=== PATIENT | male | born 1970 | race Caucasian/White ===

== ENCOUNTER 2023-10-01 08:05 | Emergency (ER) | payer SELFPAY ==
[2023-10-01] VITALS (13 sets, daily range): BP systolic 110–131; BP diastolic 84–92; PULSE 67–112; RESP 11–20; TEMP 36.6; O2SAT 95–98; BMI 33.1
--- NOTE | 2023-10-01 08:32 | ECG_ITS ---
[facility] Date: 2023-10-01 Pat Name: CECELIA KRAMER Department: Room: - Gender: Male [place]: : 1970 Requested By: LEROY GILL Order Number: [id number] Reading MD: VICKEY REDDY Measurements Intervals [place] Rate: 105 P: -[id number] SD: -60684 QRS: 50 QRSD: 82 T: 28 QT: 330 QTc: 391 Interpretive Statements 33194 Atrial fibrillation with rapid ventricular response 9140 abnormal rhythm ECG No previous ECG available for comparison Electronically Signed On 10-02-2023 6:36:23 EDT by VICKEY REDDY
--- NOTE | 2023-10-01 08:32 | XR_ITS ---
[facility] [id number] Patient Name: CECELIA KRAMER MRN: [id number] date: 1970 Sex: M Assigned Patient Location: ER Current Patient Location: ER Accession/Order Number: [id number] Exam Date: 10/01/2023 08:45 Report Date: 10/01/2023 09:06 At the request of: CATHY TONY Procedure: XR chest 1V EXAM: XR chest 1V HISTORY: Palpitations COMPARISON: None TECHNIQUE: AP view of the chest was obtained with portable technique at 0849 hours. FINDINGS: Heart and mediastinal contours are unremarkable in appearance. No acute infiltrate or consolidations are seen. No obvious pneumothorax. Slight convexity of the dorsal spine to the right. Small calcification along the lateral aspect of the right humeral head, consider calcific tendinitis. XR/XR chest 1V IMPRESSION: No acute process seen in the chest. Electronically authenticated by: NEIL HAWKINS Date: 10/01/2023 09:06
--- NOTE | 2023-10-01 08:33 | ED.ARRPALP1 ---
HPI - Arrhythmia/Palpitations General Chief Complaint: Arrhythmia/Palpitations Stated Complaint: AFIB/IRREGULAR HEARTBEAT Time Seen by Provider: 10/01/23 08:23 History of Present Illness HPI narrative: 53-year-old male presents to the emergency department for palpitations. He first noticed it today. He has no history of palpitations or atrial fibrillation. He does not complain of dizziness or shortness of breath. Last week he had a tooth extracted and is on prednisone. He does not take any other medications. There is a family history of CAD and atrial fibrillation. Related Data Previous Rx's Medication Instructions Recorded apixaban 5 mg tablet (Eliquis) 5 mg PO Q12H #60 tabs 10/01/23 Allergies Allergy/AdvReac Type Severity Reaction Status Date / Time No Known Drug Allergies Allergy Verified 10/01/23 08:15 Review of Systems ROS Narrative A ten point review of systems is negative except as noted above. PFSH PFSH Social History Smoking status: Former smoker Exam Narrative Exam Narrative: Nurses note and vital signs reviewed and patient is not hypoxic. General: The patient appears well and in no apparent distress. Patient is resting comfortably on cart. Skin: Warm, dry, no pallor noted. There is no rash noted. Head: Normocephalic, atraumatic Eye: Normal conjunctiva, no drainage Ears, Nose, Mouth, and Throat: oral mucosa is moist. Nares patent. Cardiovascular: Irregularly irregular and borderline tachycardic Respiratory: Patient is in no distress, no accessory muscle use, lungs are clear to auscultation, no wheezing, rales or rhonchi Back: non-tender GI: Soft and nontender Musculoskeletal: The patient has no evidence of calf tenderness, no pitting edema, symmetrical pulses noted bilaterally Neurological: A&O, normal speech Psychiatric: Cooperative Constitutional Vital Signs, click to edit/add: Last Vital Signs Temp 97.9 F 10/01/23 08:10 Pulse 86 10/01/23 09:40 Resp 17 10/01/23 09:40 BP 129/92 H 10/01/23 09:31 Pulse Ox 95 10/01/23 09:40 O2 Del Method Room Air 10/01/23 08:10 Course Vital Signs Vital signs: Vital Signs Temperature 97.9 F 10/01/23 08:10 Pulse Rate 67 10/01/23 08:10 Respiratory Rate 18 10/01/23 08:10 Blood Pressure 110/84 10/01/23 08:10 Pulse Oximetry 97 10/01/23 08:10 Oxygen Delivery Method Room Air 10/01/23 08:10 Temperature 97.9 F 10/01/23 08:10 Pulse Rate 86 10/01/23 09:40 Respiratory Rate 17 10/01/23 09:40 Blood Pressure 129/92 H 10/01/23 09:31 Pulse Oximetry 95 10/01/23 09:40 Oxygen Delivery Method Room Air 10/01/23 08:10 MDM - Arrhythmia/Palpitations MDM Narrative Medical decision making narrative: The patient presented with new onset atrial fibrillation with well-controlled rate. Workup is negative. Second troponin was less than the first and TSH is normal. Case discussed with Dr. Packer and follow-up is arranged. He was prescribed Eliquis. Treatment diagnosis and follow-up were discussed with the patient and his Differential Diagnosis Differential diagnosis: Likely palpitations, artial fibrillation, supraventricular tachycardia and other (PVCs) Lab Data Attestation: I reviewed the patient's lab results. Labs: Lab Results 10/01/23 10/01/23 Range/Units 08:23 09:36 WBC 9.9 (4.0-11.0) 10^3/uL RBC 5.48 (4.70-6.10) 10^6/uL Hgb 15.8 (14.0-18.0) g/dL Hct 48.2 (42.0-54.0) % MCV 88.0 (80.0-94.0) fL MCH 28.8 (25.9-34.0) pg MCHC 32.8 (29.9-35.2) g/dL RDW 13.4 (11.0-15.0) % Plt Count 301 (150-450) 10^3/uL MPV 10.3 (9.5-13.5) fL Neut % (Auto) 72.4 (43.0-75.0) % Lymph % (Auto) 19.2 L (20.5-60.0) % [place] % (Auto) 7.9 (1.7-12.0) % Eos % (Auto) 0.0 L (0.9-7.0) % Baso % (Auto) 0.3 (0.2-2.0) % Neut # (Auto) 7.2 H (1.4-6.5) 10^3/uL Lymph # (Auto) 1.9 (1.2-3.8) 10^3/uL [place] # (Auto) 0.8 (0.3-0.8) 10^3/uL Eos # (Auto) 0.0 (0.0-0.7) 10^3/uL Baso # (Auto) 0.0 (0.0-0.1) 10^3/uL Abs Immat Gran (auto) 0.02 (0.00-0.03) 10^3/uL Imm/Tot Granulo (auto) 0.2 (0.0-0.5) % PT 10.3 (9.0-11.6) sec INR 0.97 APTT 29.9 (22.3-36.2) sec Sodium 143 (136-145) mmol/L Potassium 3.7 (3.5-5.1) mmol/L Chloride 104 (98-107) mmol/L Carbon Dioxide 28.9 (21.0-32.0) mmol/L Anion Gap 13.8 BUN 20.0 H (7.0-18.0) mg/dL Creatinine 1.04 (0.70-1.30) mg/dL Est GFR ( Amer) >60 (>=60) Est GFR (Non-Af Amer) >60 (>=60) BUN/Creatinine Ratio 19.2 Glucose 86 (74-106) mg/dL Calcium 8.9 (8.5-10.1) mg/dL Troponin I High Sens 134.3 H* 115.8 H* (4.0-76.1) pg/mL TSH & Free T4 Interp 1.382 (0.358-3.740) uIU/mL Imaging Data Chest x-ray: Radiologist's impression: ITS Impressions Chest X-Ray 10/01/23 08:32 IMPRESSION: No acute process seen in the chest. Electronically authenticated by: NEIL HAWKINS Date: 10/01/2023 09:06 ECG Data Attestation: I personally reviewed and interpreted this ECG as follows: (EKG on my interpretation shows atrial fibrillation with a rate of 105.) Discharge Plan Discharge Stand Alone Forms: Portal Instructions Chief Complaint: Arrhythmia/Palpitations Clinical Impression: Atrial fibrillation, new onset Patient Disposition: Home, Self-Care Time of Disposition Decision: 10:37 Condition: Good Mode of Transportation: Private Vehicle Prescriptions / Home Meds: New Eliquis 5 mg tablet 5 mg PO Q12H Qty: 60 0RF Instructions: A-fib (Atrial Fibrillation) (ED), Blood Thinners (ED), Cardiac Ablation (DC) Referrals: Noemy Pal MD [Physician] - 1 week Dani Canas MD [Primary Care Provider] - 1 week
[2023-10-01 09:04] LABS: Basophils Percent Auto 0.3 % (0.2-2.0); Hematocrit 48.2 % (42.0-54.0); Hemoglobin 15.8 g/dL (14.0-18.0); Immature Granulocytes Abs Auto 0.02 10^3/uL (0.00-0.03); Immature Granulocytes Pct Auto 0.2 % (0.0-0.5); Lymphocytes Absolute Auto 1.9 10^3/uL (1.2-3.8); Lymphocytes Percent Auto 19.2 % (20.5-60.0); Mean Corpuscular HGB Conc 32.8 g/dL (29.9-35.2); Mean Corpuscular Hemoglobin 28.8 pg (25.9-34.0); Mean Platelet Volume 10.3 fL (9.5-13.5); Monocytes Absolute Auto 0.8 10^3/uL (0.3-0.8); Monocytes Percent Auto 7.9 % (1.7-12.0); Neutrophils Absolute Auto 7.2 10^3/uL (1.4-6.5); Neutrophils Percent Auto 72.4 % (43.0-75.0); Platelet Count 301 10^3/uL (150-450); Red Blood Count 5.48 10^6/uL (4.70-6.10); Red Cell Distribution Width 13.4 % (11.0-15.0); White Blood Count 9.9 10^3/uL (4.0-11.0)
[2023-10-01 09:12] LABS: INR 0.97; Partial Thromboplastin Time 29.9 sec (22.3-36.2); Prothrombin Time 10.3 sec (9.0-11.6)
[2023-10-01 09:14] LABS: Anion Gap 13.8; BUN Creatinine Ratio 19.2; Calcium 8.9 mg/dL (8.5-10.1); Carbon Dioxide 28.9 mmol/L (21.0-32.0); Chloride 104 mmol/L (98-107); Estimated GFR (African America >60 (>=60); Estimated GFR (Non-African Ame >60 (>=60); Glucose 86 mg/dL (74-106); Potassium 3.7 mmol/L (3.5-5.1); Sodium 143 mmol/L (136-145); TSH W/ REFLEX FT4 1.382 uIU/mL (0.358-3.740)
[2023-10-01 09:15] LABS: Troponin I High Sensitivity 134.3 pg/mL (4.0-76.1)
[2023-10-01 10:02] LABS: Troponin I High Sensitivity 115.8 pg/mL (4.0-76.1)
== END 2023-10-01 10:48 | disposition home or self-care (01) ==
PROVIDERS: Emergency Provider Emergency Medicine; PCP Family Medicine
DX: I48.91 Unspecified atrial fibrillation (principal); Z87.891 Personal history of nicotine dependence
CPT/HCPCS: 36415; 71045; 80048; 84443; 84484; 85025; 85610; 85730; 93005; 99285

== ENCOUNTER 2023-10-15 13:00 | Outpatient (OUT) | payer SELFPAY ==
--- OUTSIDE RECORDS SUMMARY | 2023-10-16 07:53 | XMS_ITS | CCD ---
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 Name Role Phone LEROY GILL Admitting Unavailable NADSALVADORRLEROY Attending Unavailable LEROY GILL Consulting Unavailable ASHLIERLEROY Admitting Unavailable NADSALVADORRLEROY Attending Unavailable JAIRO, LEROY Hanson Primary Care Unavailable ASHLIERLEROY Consulting Unavailable RAÚL FAITH Attending Unavailable Problems Problem Classification Problem Date Documented Da te Episodic/Chronic Cardiac dysrhythmias (2 sources) Paroxysmal atrial fibrillation; Translations: [Paroxysmal atrial fibrillation] Onset: 10-02-2023 Chronic Immunizations and screening for infectious disease (8 sources) Contact with and (suspected) exposure to other viral communicable diseases; Translations: [Encounter for screening for other viral diseases] Onset: 03-15-2020 Episodic Results Test Name Value Interpretation Reference Range Facil ity Office Visiton 10-02-2023 Follow-up visit [id number] Cecelia Fierro 1970 M Jimenez Provider Department Center 10/02/2023 [facility] Family History Problem Relation Age of Onset Coronary artery disease Mother Other Mother Coronary artery disease Father Other Father Atrial fibrillation Father Dilated cardiomyopathy Other 23 Family Status - Relation Status Age at Mother Father Other Level of Service:79303 AR OFFICE/OUTPATIENT NEW MODERATE MDM 45 MINUTES Normal [facility] Ambulatory Clinical Summaryo n 07-26-2020 Ambulatory Clinical Summary {[id number] Normal [facility] Patient Educationon 07-26-19 Patient Education Family Medicine Vasectomy A vasectomy is tying (with or without cutting) the tube that collects the sperm from the testicle (vas deferens ). The vasectomy blocks the sperm from going through the vas deferens and penis so that during sexual intercourse, the sperm does not go into the vagina. Vasectomy is safe, with very rare complications. It does not affect your sexual desire or performance. Since vasectomy is considered permanent, you should not have it done until you are sure you do not want any more children. You and your partner should be in full agreement to have the procedure. Your decision to have a vasectomy should not be made during a stressful situation. This includes loss of a , illness, of a spouse or divorce. There are other means of contraception that can be used until you are completely sure you want this procedure done. A vasectomy does not protect you from sexually transmitted disease. Men who want the vasectomy reversed need an operation. It may not be successful. A vasectomy has less risk and is less expensive than a woman having a tubal sterilization. LET YOUR CAREGIVER KNOW ABOUT: ? Allergies. ? Medications taken including herbs, eye drops, over the counter medications, and creams. ? Use of steroids (by mouth or creams). ? Past problems with anesthetics or Novocaine. ? History of blood clots (thrombophlebitis ). ? History of bleeding or blood problems. ? Past surgery. RISKS AND COMPLICATIONS ? Failure of the procedure to cause infertility. This means you would still be able to get a female . ? Post-operative pain. This can usually be controlled with medicine. ? Infection. A germ starts growing in the wound. This can usually be treated with antibiotics. ? An allergic reaction to the anesthetic or other medicine given. ? Bleeding. Blood may seep under the skin so that the scrotum and penis appear to be bruised. Sometimes the scrotum can swell and get the size of a grapefruit. This usually disappears without treatment within a week or two. PROCEDURE ? The scrotum is cleaned with bacterial killing soap and the caregiver finds the vas deferens. ? Each side of the scrotum is numbed. ? A very small cut (incision ) is made, and the vas deferens are pulled out of the scrotum. The vas deferens are then tied off, cut or may be burned (cauterized ) at the ends. ? Sometimes the vas deferens are pulled out from the scrotum through a puncture wound. This is done with a special instrument without an incision. ? The vas deferens are then put back into the scrotum, and the incision or puncture wound is closed. ? After surgery, sperm may still be left in the vas deferens for 1 to 3 months. Because of this, other means of contraception should be used until your caregiver examines you and finds there are no sperm in your seminal fluid. ? Castration is another method that is the surgical removal of both testicles. It causes sterilization in men. Having a vasectomy should be discussed with your infant childcare provider with you and your partner present. Ask questions and talk about your concerns with your caregiver. Then, you can decide if the operation is safe for you. You can change your mind and cancel the surgery at any time. HOME CARE INSTRUCTIONS ? Only take uyti-pzg-[id number] or prescription medicines for pain, discomfort or fever as directed by your caregiver. ? An ice pack for 15-20 minutes, 3-4 times per day will help decrease swelling. ? Wearing supportive briefs or an athletic supporter will help decrease swelling. ? Avoid being active for the first two days after surgery. ? Keep the incisions clean and covered to prevent infection. ? Some oozing of blood from the cut (incision ) is normal during the first day or two after surgery. ? Do not participate in sports or do heavy physical labor for at least two weeks. ? Follow your caregivers instructions regarding diet, rest, work, social and sexual activities and follow up appointments. SEEK IMMEDIATE MEDICAL CARE IF: ? There is redness, swelling, or increasing pain in the wounds or testicles. ? Pus is coming from wound. ? An unexplained oral temperature above 102? F (38.9? C) develops, or as directed by your caregiver. ? You notice a bad smell coming from the wound or material covering the wound (dressing ). ? There is a breaking open of the stitches (suture ) or wound edges even after sutures have been removed. Sometimes these incisions are not sutured. ? There is increased bleeding from the wounds. MAKE SURE YOU: ? Understand these instructions. ? Will watch your condition. ? Will get help right away if you are not doing well or get worse. Document Released: 09/29/2003 Document Revised: 09/30/2012 Document Reviewed: 11/24/2008 ExitCare? Patient Information ?2013 [employer]. [facility] Urology Office/Clinic Noteon 07-26-2020 Urology Office/Clinic Note Chief Complaint Pt is new and here for vasectomy consult HPI Staff Pt is new and here for vasectomy consult. Pain with urination:Pt denies pain and burning Blood in urine:Pt denies but UA shows Trace intact Incomplete bladder emptying:Pt denies Frequency:Pt denies Urgency:Pt denies Nocturia:Pt states 1 time Hesitancy:Pt denies Urination requires straining:Pt denies Post-void dribbling:Pt denies Leaking before getting to the restroom:Pt denies Urinary incontinence without sensory awareness:Pt denies Temporarily unable to restrain urination with body movement:Pt denies Wearing pad/Depends Pt denies Urine odor:Pt denies Flank/Back pain:Pt denies Abdominal pain:Pt denies History of Present Illness Reviewed urine and new patient paperwork today. There have been no associated fever, chills, flank pain or blood in the urine. Pt. denies any pain/burning with urination at this time. Review of Systems ROS - Provider Constitutional: denies weight loss, denies hot flashes. Eyes: denies eye problems. Gastrointestinal: denies nausea, denies vomiting. Cardiovascular: denies chest pain or angina. Integumentary: no dryness Musculoskeletal: denies musculoskeletal symptoms. ENMT: denies otolaryngeal symptoms. Respiratory: no shortness of breath. Heme/Lymph: denies easy bleeding tendency, denies easy bruising tendency. Psychiatric: no confusion, no anxiety. Genitourinary: denies dysuria, denies hematuria, denies discharge, denies urinary frequency, denies urinary hesitancy, denies nocturia, denies incontinence, denies genital sores, denies decreased libido, and denies erectile dysfunction. Physical Exam Vitals & Measurements HR: 60(Peripheral) RR: 16 BP: 152/92 HT: 175 cm HT: 175.0 cm WT: 118.1 kg WT: 118.1 kg BMI: 38.56 General Appearance: alert, no distress, well nourished, well developed male. Head: normocephalic . Eyes: normal orbit and globe. ENMT: normal examination of external ears. Chest: Lungs CTA, respirations non labored. Cardiovascular: regular rate and rhythm. Abdomen: soft, non distended, no tenderness, no mass or organomegaly, no hernia. Genitourinary: normal scrotum, normal testes, normal urethra, normal epididymis, normal vas deferens/spermatic cord. Flank Pain: none. Bladder: nonpalpable. Penis: normal shaft, normal glans. Prostate: normal prostate, estimated weight 30 gms, no hard nodule observed. Lymph Nodes: unremarkable palpation of the cervical area. Skin: warm, dry, no bruising. Psychiatric: cooperative, affect appropriate for age, normal judgement, euthymic mood. Assessment/Plan 1. 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 Pt. is to get a PSA level soon as he has never had one. [place] today - 30gms, no hard nodules. Will schedule Vasectomy. The procedural risks, benefits, details, and treatment alternatives of sterilization have been discussed with the patient today. He understands this procedure is considered permanent, even though vasectomy reversals can be performed. There is no guarantee of successful reversal resulting in , however. Risks discussed include bleeding, infection, failure with in about 1:2500, post-vasectomy syndrome (chronic pain in the testicle or scrotum), possible association with prostate cancer development in the future, and erection problems, among others. Despite these risks, he wishes to proceed. He also understands that he is not considered sterile until a negative semen sample has been received after about 2-3 months after the vasectomy. Full informed consent has been obtained. Will order Local anesthesia. I have reviewed the previous health record information and history for this pt. from Dr. Freeman. Follow-up With When Contact Information PETE FUENTES, Anurag Zazueta [address] [place] [phone] Additional Instructions: f/u prn Patient Education Vasectomy I, Shirley Baum , personally scribed for Dr. Freeman on 07/26/2020 12:23:55. . Documentation recorded by the scribe, Shirley Baum, accurately reflects the services(s) I performed and decisions made by me. Authenticated by Dr. Freeman on 07/26/2020 12:25:29. Problem List/Past Medical History Ongoing Vasectomy evaluation Historical No qualifying data Medications Multi Vitamins oral tablet, Oral, Daily Allergies No Known Medication Allergies Social History Tobacco Never (less than 100 in lifetime) Tobacco Use:. Never Smokeless Tobacco Use:., 07/26/2020 Family History Congenital heart disease: Mother and Father. Hyperlipidemia: Mother and Father. Stroke: Grandparent. Lab Results Ambulatory Point of Care Results Bilirubin Urine Dipstick: Negative (07/26/20 11:21:00) Blood Urine Dipstick: Trace-intact (07/26/20 11:21:00) Glucose Urine Dipstick: Negative (07/26/20 11:21:00) Ketones Urine Dipstick: Negative (07/26/20 11:21:00) Leukocytes Urine Dipstick: Negative (07/26/20 11:21:00) Nitrite Urine Dipstick: Negative (07/26/20 11:21:00) Protein Urine Dipstick: Negative (07/26/20 11:21:00) Specific [place] Urine Dipstick: 1.015 (07/26/20 11:21:00) Urine Appearance Urine Dipstick: Clear (07/26/20 11:21:00) Urine Color Urine Dipstick: Light yellow (07/26/20 11:21:00) Urobilinogen Urine Dipstick: Normal 0.2-1 EU/dl (07/26/20 11:21:00) pH Urine Dipstick: 7 (07/26/20 11:21:00) Normal [facility] Comment on above: Result Comment: Elec tronically Signed By: Anurag FREEMAN MD\.br\Date and Time Signed: 07/26/20 12:25 EST\.br\Electronically Co-Signed By: Shirley Baum MA\.br\Date and Time Co-Signed: 07/26/20 12:24 EST COVID-19 PCRon 04-02-2020 SARS-CoV-2, SLOAN Not Detected Normal Not Detected [facility] Comment on above: Result Comment: This nucleic acid amplification test was developed and its performance characteristics determined by [employer]. Nucleic acid amplification tests include PCR and TMA. This test has not been FDA cleared or approved. This test has been authorized by FDA under an Emergency Use Authorization (EUA). This test is only authorized for the duration of time the declaration that circumstances exist justifying the authorization of the emergency use of in vitro diagnostic tests for detection of SARS-CoV-2 virus and/or diagnosis of COVID-19 infection under section 564(b)(1) of the Act, 21 U.S.C. 360bbb-3(b) (1), unless the authorization is terminated or revoked sooner. When diagnostic testing is negative, the possibility of a false negative result should be considered in the context of a patient's recent exposures and the presence of clinical signs and symptoms consistent with COVID-19. An individual without symptoms of COVID-19 and who is not shedding SARS-CoV-2 virus would expect to have a negative (not detected) result in this assay. Performed By: #### C VDPCR #### [facility] [address] [place] [address] Ginateo Malcolm COVID-19 PCRon 03-16-2020 SARS-CoV-2, SLOAN Not Detected Normal Not Detected [facility] Comment on above: Result Comment: This test was developed and its performance characteristics determined by [employer]. This test has not been FDA cleared or approved. This test has been authorized by FDA under an Emergency Use Authorization (EUA). This test is only authorized for the duration of time the declaration that circumstances exist justifying the authorization of the emergency use of in vitro diagnostic tests for detection of SARS-CoV-2 virus and/or diagnosis of COVID-19 infection under section 564(b)(1) of the Act, 21 U.S.C. 360bbb-3(b)(1), unless the authorization is terminated or revoked sooner. When diagnostic testing is negative, the possibility of a false negative result should be considered in the context of a patient's recent exposures and the presence of clinical signs and symptoms consistent with COVID-19. An individual without symptoms of COVID-19 and who is not shedding SARS-CoV-2 virus would expect to have a negative (not detected) result in this assay. Performed By: #### C VDPCR #### [facility] [address] [place] [address] Gina Malcolm Encounters Encounter Date Encounter Type Care Provider Facility Start: 10-02-2023 End: 10-02-2023 [facility] Start: 04-01-2020 End: 04-02-2020 Patient encounter procedure LEROY GILL Facility:[facility] Start: 03-15-2020 End: 03-16-2020 Patient encounter procedure LEROY GILL Facility:[facility] Payers Date Payer Category Payer Unknown [id number] 1970 Unknown [id number] 1970 Unknown [id number] Progress note 10-02-2023 Note Date & Type Note Facility 10-02-2023 Note [facility] Consult Note Reason for visit: Afib HPI: Cecelia Fierro is a 53 y.o. year old with no significant cardiac history in the past was recently admitted to [facility] emergency room yesterday with atrial fibrillation he did not have any associated dizziness or shortness of breath but had recently undergone a tooth extraction and has been on prednisone following this he noted yesterday that his heart was racing fast and presented to ED. there he was started on apixaban. Cardiac workup was significant for troponin being positive and his A-fib was well-controlled. He was subsequently discharged for follow-up visit today in the clinic Denies chest pain, SOB, lightheadedness/syncope, and bleeding on Eliquis. Has a nephew that suddenly from idiopathic dilated cardiomyopathy at the age of 23. He is in clinic and noiw in SR EK10/02/23 SR. PMH: Past Medical History: Diagnosis Date Abnormal ECG Arrhythmia Atrial fibrillation (CMS/HCC) PSH: Past Surgical History: Procedure Laterality Date MULTIPLE TOOTH EXTRACTIONS SH: Social Determinants of Health Tobacco Use: Low Risk (10/02/2023) Patient History Smoking Tobacco Use: Never Smokeless Tobacco Use: Never Passive Exposure: Not on file Alcohol Use: Not on file Financial Resource Strain: Not on file Food Insecurity: Not on file Transportation Needs: Not on file Physical Activity: Not on file Stress: Not on file Social Connections: Not on file Intimate Partner Violence: Unknown (10/01/2023) [facility] Fear of Current or Ex-Partner: Not on file Emotionally Abused: Not on file Physically Abused: Not on file Sexually Abused: Not on file Physically or Sexually Abused: Not on file Depression: Not on file Housing Stability: Not on file Utilities: Not on file Allergies: No Known Allergies Weight: 103kg Visit Vitals BP 131/87 (BP Location: Right arm, Patient Position: Sitting) Pulse 87 Ht 1.753 m (5' 9 ) Wt 103 kg (228 lb) SpO2 96% BMI 33.67 kg/m??? Smoking Status Never BSA 2.24 m??? Meds: Current Outpatient Medications on File Prior to Visit Medication Sig Dispense Refill apixaban (Eliquis) 5 mg tablet Take 5 mg by mouth in the morning and at bedtime. metoprolol tartrate (Lopressor) 25 mg tablet Take 12.5 mg by mouth in the morning and at bedtime. No current facility-administered medications on file prior to visit. ROS: Review of Systems Cardiovascular: Positive for palpitations. Neurological: Positive for headaches. All other systems reviewed and are negative. Physical Exam: Constitutional General Appearance: well-nourished, well-developed, appears stated age Level of Distress: comfortable Psychiatric Mental Status: alert, normal affect Orientation: oriented to time, place, and person Insight: good judgement Eyes Lids and Conjunctivae: non-injected, no xanthelasma ENMT Ears: no lesions on external ear Nose: no lesions on external nose Oropharynx: no cyanosis, no pallor Neck Neck: supple, trachea midline Carotid Arteries: bilateral normal upstroke, no bruits Jugular Veins: normal jugular venous pressure Thyroid: not enlarged Lungs Respiratory Effort: unlabored Chest Exam: normal curvature, no thoracic deformity Auscultation: clear, no wheezing, no rales, no rhonchi Cardiovascular Rate And Rhythm: regular Heart Sounds: normal S1, normal s2, no gallop Systolic Murmur: not heard Diastolic Murmur: not heard Extremities: no cyanosis, no edema, no peripheral signs of emboli Peripheral Pulses Radial Pulse: normal Abdomen Inspection and Palpation: soft, non distended, no bruit, non tender Musculoskeletal Inspection: no joint swelling Neurologic Gait: normal gait Skin Inspection and Palpation: warm and dry Nails: no clubbing Labs: @LABRESULTS@ No results found for: CHOLESTEROL TOTAL , HDL , LDL CALC , LDL DIRECT , TRIGLYCERIDES , TSH , T3 TOTAL , T4 TOTAL , THYROID PEROXIDASE AB , BNP EKG: No results found for this or any previous visit (from the past 4464 hour(s)). Echo: Stress test: Coronary angiogram: @CATH@ Diagnostic Imaging: No images are attached to the encounter. Assessment and Plan: - New onSet AF: Will obtain echocardiogram to rule out structural heart disease and will offer exercise treadmill stress test to rule out CAD so that we can give flecainide as a pill in the pocket strategy. this is his first episode of A-fib and if it is such that he has multiple records then consideration for A-fib ablation can be entertained. at this moment he can take 4 weeks of anticoagulation better after being on aspirin alone as his [id number] is 0 - concern of sleep apnea: patient does endorse snoring and has not been evaluated for sleep apnea. I recommended they follow-up with a sleep physician for this Raúl Faith MD Cardiac Electrophysiology [facility] Summary Purpose Family History No Family History Records FoundNo Family History Records FoundNo Family History Records Found Advance Directives No Advanced Directives Records FoundNo Advanced Directives Records FoundNo Advanced Directives Records Found Additional Source Comments (unrecognized sect ion and content) No Status Records FoundNo Status Records FoundNo Status Records Found INFORMATION SOURCE (unrecogn ized section and content) DATE CREATED AUTHOR 04/22/2020 [facility] DATE CREATED AUTHOR AUTHOR'S ORGANIZ ATION 09/07/2020 [facility] DATE CREATED AUTHOR AUTHOR'S ORGANIZ ATION 10/03/2023 [facility] FOR RECORDS PERTAINING TO PATIENTS WHO ARE OR HAVE BEEN ENROLLED IN A CHEMICAL DEPENDENCY/SUBSTANCEABUSE PROGRAM, SOME INFORMATION MAY BE OMITTED. This clinical summary was aggregated from multiple sources. Caution should be exercised in using it in the provision of clinical care. This summary normalizes information from multiple sources, and as a consequence, information in this document may materially change the coding, format and clinical context of patient data. In addition, data may be omitted in some cases. CLINICAL DECISIONS SHOULD BE BASED ON THE PRIMARY CLINICAL RECORDS. [employer] provides no warranty or guarantee of the accuracy or completeness of information in this document.
== END 2023-10-15 13:01 | disposition home or self-care (01) ==
LOC: SLEEP 10-16 07:52
PROVIDERS: PCP Internal Medicine Cardiovascular Disease; Visit Provider Internal Medicine Cardiovascular Disease
DX: G47.33 Obstructive sleep apnea (adult) (pediatric) (principal)
CPT/HCPCS: 95806